=== PATIENT | female | born 1980 | race Caucasian/White ===

== ENCOUNTER 2016-08-05 15:39 | Emergency (ER) | payer MEDICAID ==
[2016-08-05 15:50] VITALS: BP 128/82
--- NOTE | 2016-08-05 15:50 | Emergency Department Report ---
Chief Complaint: Extremity Injury, Lower Stated Complaint: FELL/POSS BROKEN ANKLE Time Seen by Provider: 08/05/16 15:47 - HPI History of Present Illness: PT c/o L ankle injury. PT states she twisted her L ankle [employer]. PT's wrapped her ankle and brought her to the hospital. - ROS Review of Systems: - upper ext pain - back pain + pain and swelling to L ankle - Exam Physical Exam: pt is alert and appropriate PT has da wrap to L ankle MSE screening note: Focused history and physical exam performed. Due to findings the following was ordered: xr ED Disposition for MSE Condition: Stable
--- NOTE | 2016-08-05 16:51 | XRay Report ---
LEFT ANKLE RADIOGRAPHS INDICATION: Pain and swelling after twisting. COMPARISON: None similar at this institution. FINDINGS: AP, lateral and oblique left ankle radiographs demonstrate intact mortise, malleoli and talar dome contour with approximately 4 mm rounded ossific density inferior to the medial malleolus presumed old posttraumatic or degenerative. Mild soft tissue swelling noted anteriorly and some also possibly laterally. CONCLUSION: Left ankle soft tissue swelling/injury possible without acute bony abnormality, as described. Please correlate. Thank you for the opportunity to participate in this patient's care.
--- NOTE | 2016-08-05 17:11 | Emergency Department Report ---
ED Lower Extremity HPI - General Chief Complaint: Extremity Injury, Lower Stated Complaint: FELL/POSS BROKEN ANKLE Time Seen by Provider: 08/05/16 15:47 Source: patient, family Mode of arrival: Wheelchair Limitations: No Limitations - History of Present Illness Initial Comments: PT c/o L ankle injury. She fell and twisted her left ankle [place] [employer]. 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 PT's wrapped her ankle and brought her to the hospital. Denies any numbness or tingling to ext. reports pain 10 out of 10 and throbbing. No coronary medication taken prior to coming to the hospital. Place ice to the site. No other injuries. MD Complaint: ankle injury (LT ankle pain and swelling), fall -: This evening Injury: Ankle: Left (pain and swelling after falling) Type of Injury: hyperflexion Place: street/outdoors Improves With: cold therapy, immobilization, rest Worsens With: weight bearing, movement, palpation Context: fall Associated Symptoms: swelling, unable to bear weight. denies: snap/pop sensation, numbness, tingling Treatments Prior to Arrival: cold therapy - Related Data Previous Rx's Medication Instructions Recorded Last Taken Type HYDROcodone/APAP 5-325 [[place] 1 each PO Q6HR PRN #12 tablet 08/05/16 Unknown Rx 5/325] Ibuprofen [Motrin] 600 mg PO Q8H PRN #15 tablet 08/05/16 Unknown Rx Allergies Allergy/AdvReac Type Severity Reaction Status Date / Time No Known Allergies Allergy Verified 08/05/16 15:51 ED Review of Systems ROS: Stated complaint: FELL/POSS BROKEN ANKLE Other details as noted in HPI Comment: All other systems reviewed and negative Constitutional: denies: chills, fever Cardiovascular: denies: chest pain, palpitations, edema, syncope Gastrointestinal: denies: abdominal pain, nausea, vomiting Musculoskeletal: joint swelling, arthralgia. denies: back pain, myalgia Skin: denies: rash Neurological: abnormal gait. denies: headache, numbness, paresthesias, vertigo ED Past Medical Hx - Past Medical History Previous Medical History?: No - Surgical History Past Surgical History?: Yes Additional Surgical History: x 3 - Family History Family history: no significant - Social History Smoking Status: Current Every Day Smoker Substance Use Type: None - Medications Home Medications: Home Medications Medication Instructions Recorded Confirmed Last Taken Type HYDROcodone/APAP 5-325 [[place] 1 each PO Q6HR PRN #12 tablet 08/05/16 Unknown Rx 5/325] Ibuprofen [Motrin] 600 mg PO Q8H PRN #15 tablet 08/05/16 Unknown Rx ED Physical Exam - General Limitations: No Limitations General appearance: alert, in no apparent distress - Head Head exam: Present: atraumatic, normocephalic, normal inspection - Eye Eye exam: Present: normal appearance, PERRL, EOMI Pupils: Present: normal accommodation - Neck Neck exam: Present: normal inspection, full ROM. Absent: tenderness, meningismus, lymphadenopathy - Respiratory Respiratory exam: Present: normal lung sounds bilaterally. Absent: respiratory distress, chest wall tenderness - Cardiovascular Cardiovascular Exam: Present: regular rate, normal rhythm, normal heart sounds - GI/Abdominal GI/Abdominal exam: Present: soft, normal bowel sounds. Absent: distended, tenderness, guarding, rebound, rigid - Expanded Lower Extremity Exam Left Hip exam: Present: normal inspection, full ROM, pelvic stability. Absent: tenderness, swelling, abrasion, laceration, ecchymosis, deformity, crepidus, dislocation, erythema, external rotation, internal rotation, shortening Upper Leg exam: Present: normal inspection, full ROM. Absent: tenderness, swelling, abrasion, laceration, ecchymosis, deformity, crepidus, dislocation, erythema Knee exam: Present: normal inspection, full ROM, full knee extension. Absent: tenderness, swelling, abrasion, laceration, ecchymosis, deformity, crepidus, dislocation, erythema, effusion, pain w/ pronation/supination Lower Leg exam: Present: normal inspection, full ROM. Absent: tenderness, swelling, abrasion, laceration, ecchymosis, deformity, crepidus, dislocation, erythema, palpable cord, Rosalva's sign Ankle exam: Present: tenderness (left ankle), swelling (LT outer ankle), ecchymosis, erythema. Absent: normal inspection, full ROM (patient limited range of motion to the left ankle due to swelling and pain status post falling. Pain with passive range of motion to left ankle. She is not able to plantar flex but she is able to dorsiflex.), abrasion, laceration, deformity, crepidus, dislocation Foot/Toe exam: Present: normal inspection. Absent: full ROM (limited range of motion Left foot and ankle injury.), tenderness, swelling, abrasion, laceration , ecchymosis, deformity, crepidus, dislocation, erythema, amputation, puncture wound, foreign body, calcaneal tenderness, tenderness at base of 5th metatarsal , nail avulsion, subungual hematoma Neuro vascular tendon exam: Present: no vascular compromise, significant pain with passive ROM of distal joint. Absent: pulse deficit, abnormal cap refill, motor deficit, sensory deficit, tendon deficit, extremity cold to touch, pallor , abnormal 2-point discrimination, decreased fine/light touch, foot drop, peroneal nerve deficit Gait: Positive: unable to bear weight - Back Exam Back exam: Present: normal inspection, full ROM. Absent: tenderness, CVA tenderness (R), CVA tenderness (L), muscle spasm, paraspinal tenderness, vertebral tenderness, rash noted - Neurological Exam Neurological exam: Present: alert, oriented X3, abnormal gait (unsteady gait and left lower extremity due to ankle sprain), motor sensory deficit (patient with normal sensation to extremities. She has decreased motor movement to Left lower extremity and ankle and foot due to injury.), reflexes normal - Psychiatric Psychiatric exam: Present: normal affect, normal mood - Skin Skin exam: Present: warm, dry, intact, ecchymosis (ecchymotic Left outer ankle) . Absent: rash ED Course Vital Signs 08/05/16 15:48 Temperature 98.4 F Pulse Rate 83 Respiratory 16 Rate Blood Pressure 128/82 O2 Sat by Pulse 99 Oximetry - Reevaluation(s) Reevaluation #1: 08/05/16 18:28 Patient given Percocet 5/325 mg 2 tablets in the emergency room for left ankle pain. See Procedure note for detail on splint - Orthopedic Splinting/Casting Injury #1 Side: left Lower Extremity Injury Location: ankle Lower Extremity Immobilizer: stirrup splint Other Orthopedic Equipment: crutches ED Lower Extremity MDM - Radiology Data Radiology results: report reviewed X-ray of left ankle reveals soft tissue swelling/injury possibly without any bony abnormality. - Medical Decision Making ED Course: Seen here status post fall and with left ankle sprain and arthralgia of the left ankle. I discussed x-ray results with patient and her and is understanding.Patient given Percocet 5/325 mg 2 tablets in the emergency room for left ankle pain. See Procedure note for detail on splint. He is undescended distress diagnosis and treatment plan and need to follow up with orthopedic doctor in 2-3 days. She'll discharged home in stable condition with a prescription for [place], Motrin. Critical care attestation.: If time is entered above; I have spent that time in minutes in the direct care of this critically ill patient, excluding procedure time. ED Disposition Clinical Impression: Arthralgia of left ankle, Fall from ground level Left ankle sprain Qualifiers: Encounter type: initial encounter Involved ligament of ankle: unspecified ligament Qualified Code(s): S93.402A - Sprain of unspecified ligament of left ankle, initial encounter Left ankle injury Qualifiers: Encounter type: initial encounter Qualified Code(s): S99.912A - Unspecified injury of left ankle, initial encounter Disposition: TO HOME OR SELFCARE Is pt being admited?: No Does the pt Need Aspirin: No Condition: Stable Instructions: Arthralgia (ED), Ankle Stirrup Splint (ED), Ankle Sprain (ED), Ankle Exercises (GEN), Splint Care (ED) Additional Instructions: Please keep splint on until seen by orthopedic doctor Rest, ice, compress and elevate the affected area 72 hours Do not take [place] if you driving or operating heavy machinery with this medication causes drowsiness. Prescriptions: HYDROcodone/APAP 5-325 [[place] 5/325] 1 each PO Q6HR PRN #12 tablet PRN Reason: Pain Ibuprofen [Motrin] 600 mg PO Q8H PRN #15 tablet PRN Reason: Pain Referrals: JANET COLVIN MD [Staff Physician] - 2-3 Days Forms: Work/School Release Form(ED)
[2016-08-05] MEDS ORDERED: PERCOCET 5/325 PO ONE (17:12)
== END 2016-08-05 18:59 | disposition home or self-care (01) ==
LOC: ED 15:39
DX: S93.402A Sprain of unspecified ligament of left ankle, initial encounter (principal); F17.200 Nicotine dependence, unspecified, uncomplicated; W18.30XA Fall on same level, unspecified, initial encounter; Y93.89 Activity, other specified; Y99.8 Other external cause status; Y92.488 Other paved roadways as the place of occurrence of the external cause